=== PATIENT | male | born 1970 | race Caucasian/White ===

== ENCOUNTER 2016-11-04 10:54 | Outpatient (CLI) | payer OTHER ==
[~2016-11-04] VITALS: Ht 175.3 cm; Wt 168.6 kg
[~2016-11-04 10:54] MED LIST: ACET325T40 PO; LANT3I SC
[2016-11-04 11:08] VITALS: BP 143/75; PULSE 99; RESP 18; Ht 175.3 cm; Wt 168.6 kg
--- NOTE | 2016-11-04 16:11 | PN ---
Date/Time of Note Date/Time of Note DATE: 11/04/16 TIME: 16:05 Outpatient Progress Note Chief Complaint Bilateral ankle edema/diabetes/diabetic neuropathy/chronic pain syndrome/ hyperlipidemia/obesity HPI Bilateral ankle edema/patient has bilateral ankle edema, patient not taking any medication, patient has feeling weakness and tiredness, difficulty in walking more than a few 100 feet, patient has shortness of breath, no PND orthopnea, Diabetes/no polydipsia polyuria hypoglycemia, gastroparesis, Diabetic neuropathy/patient has diabetic neuropathy, has slight tingling and numbness, no ulcer on the foot, Hyperlipidemia/no xanthoma, on medication, no side effect of medication, Obesity patient morbidly obese, no history of hypothyroidism, Review of Systems Const: No Fever, no chills, no Wt. loss, no Fatigue, normal appetite, no diaphoresis. Eyes: No pain, no discharge, no redness, no visual change, no foreign body. ENT: No pain, no bleeding, no congestion, no sore throat, no dysphagia, no discharge or rhinitis. Lymph: No adenopathy, no tender nodes, no lymphedema. Resp: No SOB at rest, patient shortness of breath on exertion,, no cough, no sputum, no wheezing, no chest pain. CV: No chest pain, no palpitaions, no TOLEDO, no PND, no edema. GI: Normal appetite, no pain, no nausea, no vomiting, no diarrhea, no blood, no constipation. : No frequency, no urgency, no dysuria, no hematuria, no flank pain, no discharge, no bleeding. Musc: No bone/joint pain, no back pain, no neck pain, no knee pain, no restricted ROM. Skin: No rash, no skin lesions, no erythema, no laceration, no bruising, no pruritus. Neuro: No BARBOUR, no dizziness, no syncope, no seizure, no focal-weakness. Endo: No polyuria, no polydypsia, no dry-skin, no temp-intolerance. Psych: No hallucinations, no depression, no anxiety, no suicidal ideation. Ext: Bilateral ankle edema, no pain, no ulcer, no weakness patient also slight impaired sensation both legs Physical Exam Vital Signs Date Time Temp Pulse Resp B/P Pulse Ox O2 Delivery O2 Flow Rate FiO2 11/04/16 11:08 98.7 99 18 143/75 96 Room Air General Appearance: A 46 year-old male who appears well-developed, well- nourished, in no acute distress. HEENT: Head normocephalic, atraumatic. Pupils equal, round, reactive to light and accommodate. Sclerae are no jaundice. Nasal turbinates pink without erythema or nasal discharge. Mucous membranes pink and moist without lesions. Oropharynx clear without any exudate or discharge. NECK: Supple. Trachea midline, No thyromegaly, No cervical lymphadenopathy, No mass, No carotid bruits, No JVD, Carotid pulses 2+ bilaterally. PULMONARY: Clear to auscultaion bilaterally, No retractions, Chest expansion symmetric bilaterally, no rales, no ronchi, no dulness on percussion. CARDIAC: Normal SI and S2, Regular rate and rythm, no murmur, gallop, or rub. GASTROINTESTINAL: Abdomen is soft, non-tender, Non Rigid, No distention, Positive bowel sounds x4 quadrants, Liver normal. SKIN: Warm, dry, no rash, no bruise, no echmosis. EXTREMITIES: Bilateral lower extremities mild to moderate edema, no phlabitus, pulse palpable, no contracture. Slightly impaired sensation, no ulcer, MUSCULOSKELETAL: Spine Normal, Non-tender, Normal range of motion, No swelling, no deformity, no clubbing, or cyanosis, the patient has no edema to bilateral lower extremities, dorsalis pedis pulses palpable bilaterally. NEUROLOGIC: The patient is awake, alert, oriented, responding to yes/no questions appropriately, moving all extremities, cranial nerve intact, normal strenght, normal power, normal coordination, normal gait. Allergies Coded Allergies: shellfish derived (Verified Allergy, Severe, 03/08/15) [facility] Diabetes/diabetic neuropathy/chronic pain syndrome/hyperlipidemia/obesity Social Hx No smoking no drinking, patient is a former smoker, he used to drink alcohol before, and patient taking pain medication methadone, and tramadol, Family Hx Diabetes on mother's side Patient History: Endocrine and metabolic disease 30 MOTHER Assessment/Plan Impression Bilateral ankle edema/diabetes/diabetic neuropathy/chronic pain syndrome/ hyperlipidemia/obesity Plan Patient education done about diabetes hyperlipidemia and hypertension, patient mild to moderate risk, patient morbidly obese, patient advised to lose weight, Patient also advised to control the blood pressure blood sugar and weight, and also cholesterol, Patient advised to follow with the primary care physician, Patient does not have any diureti patient has bilateral ankle edema, will star Lasix 40 mg p.o. daily, #30 Patient was also given a KCl 10 mEq p.o. daily, Medications Home Meds Active Scripts Insulin Glargine* (Lantus*) 100 Unit/Ml Soln, 15 UNIT SC QAM for 28 Days, VIAL Prov:EMRE CARLOS MD 03/11/15 Acetaminophen (MAPAP) 325 Mg Tab, 650 MG PO Q6H Y for PAIN AND OR ELEVATED TEMP for 28 Days, BOTTLE Prov:EMRE CARLOS MD 03/11/15 CHARITY BORGES MD Nov 04, 2016 16:11
== END 2016-11-04 16:23 | disposition home or self-care (01) ==
LOC: DCC 10:54
PROVIDERS: ATTEND Internal Medicine
DX: E11.40 Type 2 diabetes mellitus with diabetic neuropathy, unspecified (principal); R60.0 Localized edema; G89.4 Chronic pain syndrome; E78.5 Hyperlipidemia, unspecified; E66.8 Other obesity; Z79.4 Long term (current) use of insulin

== ENCOUNTER 2016-11-18 11:10 | Outpatient (CLI) | payer OTHER ==
[~2016-11-18] VITALS: Ht 175.3 cm; Wt 141.8 kg
[2016-11-18 11:22] VITALS: BP 143/68; PULSE 94; RESP 20; Ht 175.3 cm; Wt 141.8 kg
--- NOTE | 2016-11-18 12:28 | PN ---
Date/Time of Note Date/Time of Note DATE: 11/18/16 TIME: 12:23 Outpatient Progress Note Chief Complaint Ankle edema/diabetes/neuropathy/chronic pain HPI Ankle edema/patient has bilateral ankle edema, slightly improved than before, patient lost most of the medication and now does not have any supply after 2 days, Diabetes no polydipsia polyuria hypoglycemia, Neuropathy patient has bilateral leg neuropathy, Chronic pain/patient has chronic pain syndrome, patient also lost Ultram, Review of Systems Const: No Fever, no chills, no Wt. loss, no Fatigue, normal appetite, no diaphoresis. Slightly obese, Eyes: No pain, no discharge, no redness, no visual change, delete no hemoptysis, ENT: No pain, no bleeding, no congestion, no sore throat, no dysphagia, no discharge or rhinitis. Lymph: No adenopathy, no tender nodes, no lymphedema. Resp: No SOB, no cough, no sputum, no wheezing, no chest pain. CV: No chest pain, no palpitaions, no TOLEDO, no PND, no edema. GI: Normal appetite, no pain, no nausea, no vomiting, no diarrhea, no blood, no constipation. : No frequency, no urgency, no dysuria, no hematuria, no flank pain, no discharge, no bleeding. Musc: no back pain, no neck pain, no knee pain, no restricted ROM. Skin: No rash, no skin lesions, no erythema, no laceration, no bruising, no pruritus. Neuro: No BARBOUR, no dizziness, no syncope, no seizure, no focal-weakness. Endo: No polyuria, no polydypsia, no dry-skin, no temp-intolerance. Psych: No hallucinations, no depression, no anxiety, no suicidal ideation. Ext: Bilateral ankle edema, no pain, no ulcer, no weakness. Physical Exam Vital Signs Date Time Temp Pulse Resp B/P Pulse Ox O2 Delivery O2 Flow Rate FiO2 11/18/16 11:22 98.3 94 20 143/68 94 Room Air General Appearance: A 46 year-old male who appears well-developed, well- nourished, in no acute distress. Patient slightly obese, HEENT: Head normocephalic, atraumatic. Pupils equal, round, reactive to light and accommodate. Sclerae are no jaundice. Nasal turbinates pink without erythema or nasal discharge. Mucous membranes pink and moist without lesions. Oropharynx clear without any exudate or discharge. NECK: Supple. Trachea midline, No thyromegaly, No cervical lymphadenopathy, No mass, No carotid bruits, No JVD, Carotid pulses 2+ bilaterally. PULMONARY: Clear to auscultaion bilaterally, No retractions, Chest expansion symmetric bilaterally, no rales, no ronchi, no dulness on percussion. CARDIAC: Normal SI and S2, Regular rate and rythm, no murmur, gallop, or rub. GASTROINTESTINAL: Abdomen is soft, non-tender, Non Rigid, No distention, Positive bowel sounds x4 quadrants, Liver normal. SKIN: Warm, dry, no rash, no bruise, no echmosis. EXTREMITIES: Bilateral lower extremities mild edema, no phlabitus, pulse palpable, no contracture. MUSCULOSKELETAL: Spine Normal, Non-tender, Normal range of motion, No swelling, no deformity, no clubbing, or cyanosis, the patient has no edema to bilateral lower extremities, dorsalis pedis pulses palpable bilaterally. NEUROLOGIC: The patient is awake, alert, oriented, responding to yes/no questions appropriately, moving all extremities, cranial nerve intact, normal strenght, normal power, normal coordination, normal gait. Allergies Coded Allergies: shellfish derived (Verified Allergy, Severe, 03/08/15) PMH No change Social Hx No change Family Hx No change Patient History: Endocrine and metabolic disease 30 MOTHER Assessment/Plan Impression Ankle edema Diabetes Neuropathy Chronic pain syndrome Plan Patient education done about diabetes, and hypertension, and obesity, patient advised to lose weight, Patient states that he lost the Lasix and potassium, and Ultram, I explained to the patient that I will refill Lasix and potassium, Ultram need to wait till patient's time is due, patient will follow with the primary care physician and probably will refill if he needs to Patient encouraged to lose weight, and encouraged to follow with the primary care physician, Medications Home Meds Active Scripts Insulin Glargine* (Lantus*) 100 Unit/Ml Soln, 15 UNIT SC QAM for 28 Days, VIAL Prov:EMRE CARLOS MD 03/11/15 Acetaminophen (MAPAP) 325 Mg Tab, 650 MG PO Q6H Y for PAIN AND OR ELEVATED TEMP for 28 Days, BOTTLE Prov:EMRE CARLOS MD 03/11/15 CHARITY BORGES MD Nov 18, 2016 12:28
== END 2016-11-18 17:00 | disposition home or self-care (01) ==
LOC: DCC 11:10
PROVIDERS: ATTEND Internal Medicine
DX: E11.9 Type 2 diabetes mellitus without complications (principal); G62.9 Polyneuropathy, unspecified; R60.0 Localized edema; G89.4 Chronic pain syndrome

== ENCOUNTER 2017-03-01 13:14 | Emergency (ER) | payer OTHER ==
[~2017-03-01] VITALS: Ht 170.2 cm; Wt 139.0 kg
[2017-03-01 13:37] VITALS: Ht 170.2 cm; Wt 139.0 kg
--- NOTE | 2017-03-01 18:33 | ERD ---
ER Documentation Chief Complaint Chief Complaint BILAT LL SWELLING WITH REDNESS AND PAIN, HX CELLULITIS, NO WOUNDS HPI 46-year-old male patient with a past medical history of diabetes and hypertension presents to the ED complaining of bilateral chronic skin changes of the legs. Reports that he was diagnosed with cellulitis on February 03, 2017 and was admitted to [facility]. Reports that he has been receiving IV antibiotics and states that now it feels better and has healed. Denies any fever, chills, chest pain, shortness of breath, nausea, vomiting, loss of sensation, loss of range of motion. Patient was sent here by PCP for further evaluation. ROS All systems reviewed and are negative except as per history of present illness. Medications Home Meds Active Scripts Insulin Glargine* (Lantus*) 100 Unit/Ml Soln, 15 UNIT SC QAM for 28 Days, VIAL Prov:EMRE CARLOS MD 03/11/15 Acetaminophen (MAPAP) 325 Mg Tab, 650 MG PO Q6H Y for PAIN AND OR ELEVATED TEMP for 28 Days, BOTTLE Prov:EMRE CARLOS MD 03/11/15 Allergies Allergies: Coded Allergies: shellfish derived (Verified Allergy, Severe, 03/01/17) PMhx/Soc History of Surgery: Yes (KNEE SURGERY, RIGHT LEG SURGERY ,RIGHT SHOULDER SURGERY ) Anesthesia Reaction: No Hx Neurological Disorder: No Hx Respiratory Disorders: No Hx Cardiac Disorders: Yes (HIGH CHOLESTEROL ) Hx Psychiatric Problems: No Hx Miscellaneous Medical Probl: Yes (MORBID OBESITY ) Hx Alcohol Use: Yes Hx Substance Use: No Hx Tobacco Use: Yes Smoking Status: Current every day smoker Physical Exam Vitals Vital Signs Date Time Temp Pulse Resp B/P Pulse Ox O2 Delivery O2 Flow Rate FiO2 03/01/17 13:37 97.9 97 18 152/81 96 Physical Exam Const: [id number], well-nourished. In no acute distress. Head: Atraumatic, normocephalic Eyes: Normal Conjunctiva without injection ENT: Normal external ear, nose and mouth. Neck: Full range of motion. No meningismus. Resp: Clear to auscultation bilaterally. No wheezing, rhonchi, rales, or crackles. No accessory muscle use. No retractions. Cardio: Regular rate and rhythm, no murmurs Skin: No petechiae or rashes Back: No midline tenderness. No CVA tenderness. Ext: No cyanosis, or edema. Cap refill less than 2 seconds. Distal pulses intact bilaterally. Nonicteric brownish eczematous rash noted bilaterally. No erythema. No fluctuance or induration. No warmth to touch. Neur: Awake and alert. Normal gait and coordination. Muscle strength 5/5. Sensation intact bilaterally. Psych: Normal Mood and Affect Procedures/MDM 46-year-old male patient past medical history of diabetes, hypertension presents to the ED complaining of bilateral leg pain and was sent here for further evaluation by his primary care physician. Patient is afebrile and nontoxic-appearing. Patient has normal vital signs. Dr. Lyn also evaluated patient at this time and stated that patient can be managed on outpatient basis. Patient likely has chronic eczematous changes on his bilateral shins with no warmth to touch. No erythema or edema. No palpable cords. Low suspicion for cellulitis, DVT, septic arthritis, fractures, dislocations, anaphylaxis, scabies, SJS/TEN, TSS, Lyme's Disease, syphilis, RMSF, shingles, disseminated gonorrhea chlamydia, DIC, TTP, ITP, erythema multiforme, sepsis, necrotizing fascitis, gangrene, eningococcemia, allergic contact dermatitis, urticaria, tinea infection, or other emergent conditions. Follow up with primary care physician in 1-2 days. Recommended Instructed patient to return to the ED sooner for any worsening symptoms. Patient's questions were answered. Patient understood and agreed with discharge plan. Patient discharged stable. Departure Diagnosis: Primary Impression: Chronic pain of lower extremity, bilateral Condition: Stable Patient Instructions: Self-Care for Skin Rashes Referrals: [facility] YOU HAVE RECEIVED A MEDICAL SCREENING EXAM AND THE RESULTS INDICATE THAT YOU DO NOT HAVE A CONDITION THAT REQUIRES URGENT TREATMENT IN THE EMERGENCY DEPARTMENT. FURTHER EVALUATION AND TREATMENT OF YOUR CONDITION CAN WAIT UNTIL YOU ARE SEEN IN YOUR DOCTORS OFFICE WITHIN THE NEXT 1-2 DAYS. IT IS YOUR RESPONSIBILITY TO MAKE AN APPOINTMENT FOR FOLOW-UP CARE. IF YOU HAVE A PRIMARY DOCTOR --you should call your primary doctor and schedule an appointment IF YOU DO NOT HAVE A PRIMARY DOCTOR YOU CAN CALL OUR PHYSICIAN REFERRAL HOTLINE AT IF YOU CAN NOT AFFORD TO SEE A PHYSICIAN YOU CAN CHOSE FROM THE FOLLOWING [facility] [address] [place] [facility] [address] [facility] [address] [facility] [address] [facility] [address] [facility]. [facility] [address] [facility] [facility] YOU HAVE RECEIVED A MEDICAL SCREENING EXAM AND THE RESULTS INDICATE THAT YOU DO NOT HAVE A CONDITION THAT REQUIRES URGENT TREATMENT IN THE EMERGENCY DEPARTMENT. FURTHER EVALUATION AND TREATMENT OF YOUR CONDITION CAN WAIT UNTIL YOU ARE SEEN IN YOUR DOCTORS OFFICE WITHIN THE NEXT 1-2 DAYS. IT IS YOUR RESPONSIBILITY TO MAKE AN APPOINTMENT FOR FOLOW-UP CARE. IF YOU HAVE A PRIMARY DOCTOR --you should call your primary doctor and schedule and appointment IF YOU DO NOT HAVE A PRIMARY DOCTOR YOU CAN CALL OUR PHYSICIAN REFERRAL HOTLINE AT . IF YOU CAN NOT AFFORD TO SEE A PHYSICIAN YOU CAN CHOSE FROM THE FOLLOWING [facility]: [facility] [address] [place] [address] [facility] [address] [place] [address] [facility] [address] [place] [address] [facility] URGENT CARE/SPECIALTIES Additional Instructions: No signs of cellulitis. Call your primary care doctor TOMORROW for an appointment during the next 2-3 days.See the doctor sooner or return here if your condition worsens before your appointment time - increased redness, fever, increased swelling, warmth to touch of both shins, etc. TARAH CARRILLO PA-C Mar 01, 2017 18:33
== END 2017-03-01 15:08 | disposition home or self-care (01) ==
LOC: FTE 13:14
DX: M79.604 Pain in right leg (principal); M79.605 Pain in left leg; E11.9 Type 2 diabetes mellitus without complications; E66.01 Morbid (severe) obesity due to excess calories; F17.210 Nicotine dependence, cigarettes, uncomplicated; Z68.41 Body mass index [BMI] 40.0-44.9, adult; Z79.4 Long term (current) use of insulin
CPT/HCPCS: 99282